=== PATIENT | male | born 1975 | race Caucasian/White ===

== ENCOUNTER 2019-11-02 20:05 | Emergency (ER) | payer BC ==
[~2019-11-02] VITALS: Ht 149.9 cm; Wt 63.5 kg
[2019-11-02 20:09] VITALS: BP_SYST 129
[2019-11-02] MEDS ORDERED: DIPHENHYDRAMINE HCL 25 MG CAPSULE PO ONE (20:30)
[2019-11-02] MEDS ORDERED: DEXAMETHASONE SOD PHOSPHATE 10 MG/ML VIAL IM ONE (20:30)
[2019-11-02 21:05] VITALS: BP_SYST 121
== END 2019-11-02 21:05 | disposition home or self-care (01) ==
LOC: SED 20:05
DX: T78.40XA Allergy, unspecified, initial encounter (principal); I10 Essential (primary) hypertension; F12.90 Cannabis use, unspecified, uncomplicated; X58.XXXA Exposure to other specified factors, initial encounter
CPT/HCPCS: 70450; 96372; 99284; J1100; Q0163

== ENCOUNTER 2019-11-10 15:47 | Inpatient (IN) | payer BC, MEDICAID ==
[~2019-11-10] VITALS: Ht 149.9 cm; Wt 63.5 kg
[2019-11-10 15:50] VITALS: BP_SYST 153
--- NOTE | 2019-11-10 15:56 | NUR ---
Patient to ER bed 3 to gown for evaluation. Side rails up. Report given to DEJUAN Pavon.
--- NOTE | 2019-11-10 15:58 | NUR ---
Patient arrived in the ED c/o generalized weakness, chills, shaky, anxiety that started today - patient stated he's undergoing alcohol withdrawal. Denied any chest pain or shortness of breath. Denied any fevers or vomiting. Patient is alert and oriented x4, respirations even and unlabored, speaking in full sentences, and ambulating with a steady gait. VSS, pain level 0/10. Informed of the approximate wait time. Instructed to notify ED staff for any changes in condition or worsening of symptoms while waiting to be seen by an ED provider. Patient verbalized understanding.
[2019-11-10] MEDS ORDERED: NACL 0.9% 2,000 ML IV ONE (16:00)
[2019-11-10] MEDS ORDERED: FOLIC ACID 1 MG, THIAMINE HCL 100 MG, MAGNESIUM SULFATE 1 GM, MVI 10 ML in NACL 0.9% 1,... IV ONE (16:00)
[2019-11-10] MEDS ORDERED: LORazepam 2 MG/ML VIAL IVP ONE ×2 (16:00→17:45)
--- NOTE | 2019-11-10 16:04 | NUR ---
ER Dr. Negro at bedside examining patient.
[2019-11-10] MEDS ORDERED: KCL 20 mEq in 100 mL (PREMIX) 100 ML IV ONE (16:15)
[2019-11-10] MEDS ORDERED: ONDANSETRON HCL 4 MG/2 ML VIAL IVP ONE (16:15)
--- NOTE | 2019-11-10 16:15 | NUR ---
# 18 gauge angiocath placed to RAC, LAC. Use of asceptic technique. Opsite placed over site. Blood return noted. Blood for lab drawn from site. Flushed with 10 cc of normal saline. No evidence of infiltration noted. Patient tolerated well.
[2019-11-10 16:21] LABS: BASOPHILS # (AUTO) 0.1 K/uL (0.0-0.2); BASOPHILS % (AUTO) 0.9 % (0.0-2.0); EOSINOPHILS # (AUTO) 0.2 K/uL (0.0-0.4); EOSINOPHILS % (AUTO) 1.4 % (0.0-4.0); HEMATOCRIT 45.5 % (36-54); HEMOGLOBIN 15.4 g/dL (14.0-18.0); LYMPHOCYTES # (AUTO) 2.9 K/uL (1.0-5.5); LYMPHOCYTES % (AUTO) 20.3 % (20.5-51.5); MEAN CORPUSCULAR HEMOGLOBIN 31 pg (27-31); MEAN CORPUSCULAR HGB CONC 34 % (32-36); MEAN CORPUSCULAR VOLUME 91 fL (79.0-98.0); MONOCYTES # (AUTO) 1.7 K/uL (0.0-1.0); MONOCYTES % (AUTO) 11.9 % (1.7-9.3); NEUTROPHILS # (AUTO) 9.3 K/uL (1.8-7.7); NEUTROPHILS % (AUTO) 65.5 % (40.0-70.0); PLATELET COUNT (AUTO) 248 K/uL (130-430); RED BLOOD CELL COUNT(AUTO) 4.98 MIL/uL (4.2-6.2); RED CELL DISTRIBUTION WIDTH 15.8 % (9.0-15.0); WHITE BLOOD COUNT (AUTO) 14.3 K/uL (4.8-10.8)
--- NOTE | 2019-11-10 16:30 | NUR ---
Administered Ativan and Zofran IVP as ordered by Dr. Negro. Patient tolerated the medications well. See eMAR for details.
[2019-11-10] MEDS ORDERED: THIAMINE HCL 100 MG/ML VIAL ONE (16:39)
[2019-11-10] MEDS ORDERED: MAGNESIUM SULFATE 1 GM/2 ML VIAL ONE (16:39)
[2019-11-10] MEDS ORDERED: MVI 10 ML VIAL IV ONE (16:39)
[2019-11-10] MEDS ORDERED: FOLIC ACID 5 MG/ML VIAL IV ONE (16:39)
[2019-11-10 16:49] LABS: ANION GAP 10 (5-15); CALCIUM 10.5 mg/dL (8.4-11.0); CHLORIDE 98 mmol/L (98-107); GLUCOSE 127 mg/dL (70-99); POTASSIUM 3.2 mmol/L (3.5-5.1); SODIUM SERUM 139 mmol/L (136-145); UREA NITROGEN, BLOOD 20 mg/dL (8-21)
[2019-11-10 16:50] LABS: GFR AFRICAN AMERICAN 93 mL/min (>90)
[2019-11-10 16:55] LABS: ALANINE AMINOTRANSFERASE 64 U/L (12-78); ALBUMIN 3.9 g/dL (3.4-4.8); ASPARTATE AMINOTRANSFERASE 100 U/L (10-37)
[2019-11-10 16:58] LABS: ALCOHOL, BLOOD < 3 mg/dL (<10)
[2019-11-10] MEDS ORDERED: DIPHENHYDRAMINE INJ 50 MG/ML VIAL IVP ONE (17:45)
[2019-11-10] MEDS ORDERED: METOPROLOL TARTRATE 5 MG/5 ML VIAL IVP ONE (17:45)
--- NOTE | 2019-11-10 17:48 | NUR ---
Administered Ativan, Benadryl, and Lopressor as ordered by Dr. Negro. Patient tolerated the medications well. See eMAR for details.
--- NOTE | 2019-11-10 17:52 | NUR ---
RECEIVED ADMITTING ORDERS FROM DR. CANALES.
[2019-11-10 17:54] LABS: BILIRUBIN,URINE 1+ (NEGATIVE); COLOR,URINE YELLOW (YELLOW); GLUCOSE,URINE NEGATIVE (NEGATIVE); KETONES,URINE NEGATIVE (NEGATIVE); LEUKOCYTE ESTERASE ,URINE NEGATIVE (NEGATIVE); NITRITE, URINE NEGATIVE (NEGATIVE); PH,URINE 5.5 (5.0-8.0); PROTEIN URINE NEGATIVE (NEGATIVE); UROBILINOGEN,URINE 0.2 (0.2-1.0)
[2019-11-10] MEDS ORDERED: LORazepam 2 MG/ML VIAL IVP PRN (18:00)
[2019-11-10 18:06] LABS: BENZODIAZEPINE, URINE POSITIVE (NEG <=150); UR TRICYCLIC ANTIDEPRESSANTS POSITIVE (NEG <=300); URINE AMPHETAMINE POSITIVE (NEG <=500)
[2019-11-10 18:08] LABS: CANNABINOID, URINE POSITIVE (NEG <=50)
[2019-11-10 18:09] LABS: BARBITURATE, URINE NEGATIVE (NEG <=200); COCAINE, URINE NEGATIVE (NEG <=150); METHAMPHETAMINES SCREEN,URINE NEGATIVE (NEG <=500); OPIATE, URINE NEGATIVE (NEG <=100); PHENCYCLIDINE SCREEN,URINE NEGATIVE (NEG <=25); URINE METHADONE NEGATIVE (NEG <=200); URINE OXYCODONE SCREEN NEGATIVE (NEG <=100); URINE PROPOXYPHENE SCREEN NEGATIVE (NEG <=300)
--- NOTE | 2019-11-10 18:28 | NUR ---
Patient will be admitted to care of DR. CANALES. Admitted to TELE unit. Will go to room 103B. Belongings list completed. Complete and up to date summary report printed. SBAR report to be given at bedside with opportunity for questions.
[2019-11-10 18:39] LABS: BLOOD, URINE TRACE (NEGATIVE)
[2019-11-10 18:40] LABS: CLARITY/URINE HAZY (CLEAR)
[2019-11-10 18:43] VITALS: BP_SYST 124
--- NOTE | 2019-11-10 18:50 | NUR ---
[facility] Patient admitted from ER [facility] bed 103B. Patient A/Ox3 but forgetful. Patient pulled out 18 g in LAC. Bed alarm on, call light in reach, side rails up x2, bed in low and locked position. will endorse care to NOC RN.
[2019-11-10] MEDS ORDERED: predniSONE 20 MG TABLET ONE (18:51)
[2019-11-10] MEDS ORDERED: DOCUSATE SODIUM 100 MG CAPSULE PO PRN (19:15)
[2019-11-10] MEDS ORDERED: MUPIROCIN 2% TOPICAL OINTMENT 22 GM NS PRN (19:15)
[2019-11-10] MEDS ORDERED: ACETAMINOPHEN 325 MG TABLET PO PRN (19:15)
[2019-11-10] MEDS ORDERED: POTASSIUM CHLORIDE 20 MEQ TAB.PRT.SR PO PRN (19:15)
[2019-11-10] MEDS ORDERED: MAGNESIUM SULFATE 50 ML IV PRN (19:15)
[2019-11-10 19:27] LABS: RBC,URINE 0-3 /HPF (0-3)
[2019-11-10 19:28] LABS: BACTERIA,URINE FEW /HPF (None Seen); FINE GRANULAR CASTS,URINE 0-10 /LPF (None Seen); OTHER CASTS, URINE WBC CASTS 1+ /LPF (None Seen); URINE AMORPHOUS URATE 1+ /HPF (None Seen)
[2019-11-10 19:29] LABS: CALCIUM OXALATE CRYSTALS,UR 0-10 /HPF (None Seen); MUCUS,URINE 2+ /LPF (None Seen)
[2019-11-10] MEDS ORDERED: FLU VACC QS2020-21 (6 mos & up) 0.5 ML/SYRINGE I.M. PRN (19:30)
--- NOTE | 2019-11-10 19:30 | NUR ---
CHANGE OF SHIFT; pt. was just admitted from ER for ETOH withdrawal. pt. very anxious when received. fidgety and out of bed. pt. wants Ativan,just given @ 1800, informed pt. that I will check for the order. IV infusing via rt. antecubital. call light at bedside. informed to stay in bed.
--- NOTE | 2019-11-10 19:45 | NUR ---
NOTES: pt. out of bed, getting restless, removed catalyst operator gasoline, cables off. IV tubing pulling out since been going around, touching every little thing. pt. reoriented, for close observation. not using call light.
--- NOTE | 2019-11-10 20:15 | NUR ---
NOTES: remain restless, frequent reminder to stay in bed, jello given and water. gave urinal and put trash inside, informed to use urinal to void.
[2019-11-10] MEDS: LORazepam 2 MG/ML VIAL IVP PRN (20:39)
--- NOTE | 2019-11-10 20:40 | NUR ---
NOTES: pt. remain agitated.restless and getting confused, IV Ativan given as ordered. hot roll laminator off. IV pump line broken, keeps getting out of bed and wont keep still in bed. charge nurse Sussy also talking to him to stay in bed. spills water, removed pt. gown, verbalizing he wants to go home. condition guarded.
[2019-11-10] MEDS: NACL 0.9% 1,000 ML IV SCH (21:58)
[2019-11-10] MEDS: chlordiazePOXIDE HCL 25 MG CAPSULE PO SCH (21:58)
--- NOTE | 2019-11-10 22:00 | NUR ---
NOTES: new IV tubing and pump to resume IVF. Librium po given as ordered. needs attended.
--- NOTE | 2019-11-10 23:00 | NUR ---
NOTES: pt. still awake, condition observed. IV site rewrapped and secured to keep it in.
--- NOTE | 2019-11-10 23:17 | NUR ---
NOTES: Dr. Bass called and informed him pt. status about agitation, restlessness and removing everything. no further order, off monitor for now.
--- NOTE | 2019-11-10 23:26 | NUR ---
NOTES: pt. been getting out of his room, charge nurse Sussy and roller printing supervisor Tee here. and tried to talk with him. pt. able to disconnect IVF.
[2019-11-10] MEDS: ZOLPIDEM TARTRATE 5 MG TABLET PO PRN (23:49)
--- NOTE | 2019-11-10 23:55 | NUR ---
NOTES: still awake, still attempts to get out of the room, sleeping medication given as ordered. continue to monitor.
[2019-11-11] VITALS: BP_SYST 141
[2019-11-11] MEDS: NACL 0.9% 1,000 ML IV SCH ×4 (00:40→15:23)
[2019-11-11] MEDS: LORazepam 2 MG/ML VIAL IVP PRN ×2 (00:42→05:26)
--- NOTE | 2019-11-11 00:45 | NUR ---
NOTES: pt. medicated with IV Ativan, still awake and agitated, pretty restless, been getting out of the room every so often. pt. getting angry when you tell him repeatedly.
--- NOTE | 2019-11-11 01:45 | NUR ---
NOTES: remain awake, constantly being watched and talked to by other nurses and occasionally calling security. pt. still confused and disoriented.
--- NOTE | 2019-11-11 03:22 | NUR ---
NOTES: still awake and restless, confused and got the room messed up, been going thru all the drawers, IV pump and head lights. no effect on IV Ativan given. pt. is harmful to himself and others. bilateral soft wrist restraints applied. Addendum: 11/11/19 at 0426 by Shari Murdock RN Late entry;[id number] nursing management supervisor, information systems security analyst and staff helped to put restraints.
--- NOTE | 2019-11-11 04:02 | NUR ---
NOTES: pt. manage to remove restraints twice. pt. up in bed and standing outside his room.
--- NOTE | 2019-11-11 04:10 | NUR ---
NOTES: pt. able to persuade to go back to bed , unable to put restraints back since pt. can remove it. off IVF and rn cardiac cath.
--- NOTE | 2019-11-11 05:28 | NUR ---
NOTES: pt. getting worst , being destructive, O2 flow meter took off the wall suctio, foot board removing from the bed, placed back soft bilateral soft wrist restraints. IVF resume. medicated with IV Ativan as ordered. condition guarded. nursing supervisor pyrotechnic loading, security and tech Javad helped in placing restraints. pt. repositioned.
--- NOTE | 2019-11-11 05:46 | NUR ---
NOTES: again, pt. manage to remove restraints, called family member and left message to call back to inform about restraints. will call .
--- NOTE | 2019-11-11 06:15 | NUR ---
NOTES: pt. able to remove again the restraints, Javad moran been directly observing pt. charge nurse Sussy kennedy.
[2019-11-11 06:23] LABS: BASOPHILS # (AUTO) 0.1 K/uL (0.0-0.2); BASOPHILS % (AUTO) 0.6 % (0.0-2.0); EOSINOPHILS % (AUTO) 0.1 % (0.0-4.0); HEMATOCRIT 37.5 % (36-54); HEMOGLOBIN 12.5 g/dL (14.0-18.0); LYMPHOCYTES # (AUTO) 1.6 K/uL (1.0-5.5); LYMPHOCYTES % (AUTO) 14.5 % (20.5-51.5); MEAN CORPUSCULAR HEMOGLOBIN 31 pg (27-31); MEAN CORPUSCULAR HGB CONC 33 % (32-36); MEAN CORPUSCULAR VOLUME 92 fL (79.0-98.0); MONOCYTES # (AUTO) 1.1 K/uL (0.0-1.0); NEUTROPHILS # (AUTO) 8.3 K/uL (1.8-7.7); NEUTROPHILS % (AUTO) 74.8 % (40.0-70.0); PLATELET COUNT (AUTO) 191 K/uL (130-430); RED BLOOD CELL COUNT(AUTO) 4.05 MIL/uL (4.2-6.2); RED CELL DISTRIBUTION WIDTH 17.5 % (9.0-15.0); WHITE BLOOD COUNT (AUTO) 11.1 K/uL (4.8-10.8)
--- NOTE | 2019-11-11 06:45 | NUR ---
CLOSING NOTES; called Dr. Bass and return the call and informed him about pt. being destructive and harmful to self and other. ok to put on bilateral soft wrist restraints and sitter. charge nurse informed. pt. still awake, wandering around the room. sitter at bedside. for further care and observation.
[2019-11-11 07:04] LABS: CALCIUM 8.3 mg/dL (8.4-11.0); CREATININE 1.47 mg/dL (0.55-1.30); POTASSIUM 3.9 mmol/L (3.5-5.1)
--- NOTE | 2019-11-11 07:20 | NUR ---
OPENING NOTES: RECEIVED PATIENT FROM MANAGED CARE NURSE NURSE. PATIENT IS AWAKE AND ALERT x1. PATIENT IS WALKING AROUND THE ROOM. SITTER OUTSIDE THE DOOR. PATIENT IS TOLERATING OXYGEN ON ROOM AIR WITH NO SIGNS OF DISTRESS OR SHORTNESS OF BREATH NOTED. IV SITE IS INFILTRATED. IV CATHETER REMOVED AND INTACT. NO ACTIVE BLEEDING NOTED. WILL ATTEMPT TO INSERT NEW IV. PATIENT PUT BACK ON THE TELEMETRY BOX. PATIENT STATES HE WILL KEEP IT ON THIS TIME. PATIENT IN STABLE CONDITION. SAFETY, FALL, ASPIRATION AND SEIZURE PRECAUTIONS ARE IN PLACE. BED LOCKED IN LOWEST POSITION WITH CALL LIGHT IN REACH. WILL CONTINUE TO MONITOR PATIENT FOR ANY CHANGES.
[2019-11-11] MEDS ORDERED: FOLIC ACID 1 MG, THIAMINE HCL 100 MG, MAGNESIUM SULFATE 1 GM, MVI 10 ML in NACL 0.9% 1,... IV ONE (07:45)
--- NOTE | 2019-11-11 07:57 | NUR ---
CONSULTATION PAGED/CALLED Reason for Consultation: [] MANIC, ALCOHOLISM Person Who was Notified: [] DR MEAD Consulting Physician: [] DR MEAD, SHEEP AND WHEAT FARMER FOR DR CHAHAL Battery Parts Assembler Specialty: [] PSYCH Ordering Physician: [] DR CANALES
[2019-11-11 08:00] VITALS: BP_SYST 136
[2019-11-11] MEDS ORDERED: THIAMINE HCL 100 MG, MAGNESIUM SULFATE 1 GM in NS 100 ML IV ONE (08:30)
[2019-11-11] MEDS ORDERED: FOLIC ACID 1 MG, MVI 10 ML in NACL 0.9% 1,000 ML IV ONE (08:30)
[2019-11-11] MEDS: OLANZapine 5 MG TABLET PO SCH ×2 (08:59→21:26)
[2019-11-11] MEDS: chlordiazePOXIDE HCL 25 MG CAPSULE PO SCH ×3 (08:59→21:26)
[2019-11-11] MEDS: FOLIC ACID 1 MG TABLET PO SCH (09:00)
[2019-11-11] MEDS: cefTRIAXone 1 GM in D5W 50 ML IV SCH (09:03)
--- NOTE | 2019-11-11 09:10 | NUR ---
IV INSERTION: NEW IV INSERTED INTO RIGHT WRIST 22 G. ASEPTIC TECHNIQUE USED. BLOOD RETURN AND FLUSHED WITHOUT RESISTANCE. IV FLUIDS AND BANANA BAG HOOKED UP TO PATIENT. WRAPPED IV WITH KERLIX. EDUCATED PATIENT ON THE IMPORTANCE OF KEEPING THE IV IN AND NOT PLAYING WITH THE IV POLE. WILL CONTINUE TO MONITOR PATIENT.
--- NOTE | 2019-11-11 10:00 | NUR ---
RN ROUNDS: PATIENT IS AWAKE AND ALERT x1 LAYING DOWN IN BED. SECURITY BROUGHT A SHIRT FOR THE PATIENT. ASSISTED PATIENT WITH PUTTING ON THE SHIRT. IV LINES RECONNECTED. SITTER AT BEDSIDE. PATIENT IN STABLE CONDITION. WILL CONTINUE TO MONITOR PATIENT FOR ANY CHANGES.
--- NOTE | 2019-11-11 12:27 | NUR ---
RN ROUNDS: PATIENT IS AWAKE AND ALERT x1 LAYING DOWN IN BED. PATIENT IS TOLERATING OXYGEN ON ROOM AIR WITH NO SIGNS OF DISTRESS OR SHORTNESS OF BREATH NOTED. IV SITE IS PATENT WITH NO SIGNS OF INFILTRATION NOTED AND RUNNING FLUIDS ORDERED. SITTER AT BEDSIDE. PATIENT IN STABLE CONDITION. WILL CONTINUE TO MONITOR PATIENT FOR ANY CHANGES.
--- NOTE | 2019-11-11 13:24 | NUR ---
SS NOTES/DCP/ETOH: LOAN REVIEW ANALYST was referred by SS to see patient for ETOH and DCP. LOAN REVIEW ANALYST phoned PTN, Diana Alvarez @ [phone]. Per mom, pt lives with room mates in [place]. Pt is independent with all ADL's and does not utilize any DME. Pt was working and was laid off due to Covid. Pt has a long history of depression and anxiety and has a diagnoses of manic disorder but no history of inpatient psychiatric admissions. Pt is connected with outpatient mental health but unknown clinic at this time. Pt also has polysubstance abuse disorder and has been on multiple substances since his teenage years. Per mom, pt drinks heavily and abuses prescription drugs. especially after his brother's suicide 6 years ago. Pt has a history of voluntary rehab admissions in [place] and recently in [facility] 1-2 months ago. Pt's only source of income is his unemployment and his support systems are his roommates and family. LOAN REVIEW ANALYST provided patient with outpatient mental health and substance abuse resources.
--- NOTE | 2019-11-11 14:40 | NUR ---
RN ROUNDS: PATIENT IS ASLEEP LAYING DOWN IN BED. SITTER AT BEDSIDE. PATIENT IS TOLERATING OXYGEN ON ROOM AIR WITH NO SIGNS OF DISTRESS OR SHORTNESS OF BREATH NOTED. IV SITE IS PATENT WITH NO SIGNS OF INFILTRATION NOTED. PATIENT IN STABLE CONDITION. WILL CONTINUE TO MONITOR PATIENT FOR ANY CHANGES.
--- NOTE | 2019-11-11 16:10 | NUR ---
RN ROUNDS: PATIENT IS ASLEEP LAYING DOWN IN BED. PATIENT IS TOLERATING OXYGEN ON ROOM AIR WITH NO SIGNS OF DISTRESS OR SHORTNESS OF BREATH NOTED. IV SITE IS PATENT WITH NO SIGNS OF INFILTRATION NOTED. SITTER AT BEDSIDE. PATIENT IN STABLE CONDITION. WILL CONTINUE TO MONITOR PATIENT FOR ANY CHANGES.
--- NOTE | 2019-11-11 18:45 | NUR ---
CLOSING NOTES: PATIENT IS ASLEEP LAYING DOWN IN BED. SITTER AT BEDSIDE. PATIENT IS TOLERATING OXYGEN ON ROOM AIR WITH NO SIGNS OF DISTRESS OR SHORTNESS OF BREATH NOTED. IV SITE IS PATENT WITH NO SIGNS OF INFILTRATION AND RUNNING FLUIDS ORDERED. PATIENT REFUSES TO KEEP TELEMETRY BOX ON. PATIENT IN STABLE CONDITION. SAFETY, FALL, ASPIRATION AND SEIZURE PRECAUTIONS REMAINED IN PLACE THROUGHOUT THE SHIFT. PATIENT REFUSED TO HAVE SEIZURE PADS APPLIED TO THE BED. BED LOCKED IN LOWEST POSITION WITH CALL LIGHT IN REACH. WILL ENDORSE PATIENT CARE TO ONCOMING SPECIALTY TRIMMER.
[2019-11-11 19:00] VITALS: BP_SYST 135
--- NOTE | 2019-11-11 19:15 | NUR ---
change of shift.pt.presents admit dx;etoh withdrawls possible note seizure 2/t etoh withdrawls.pt.presents quiescent affect;calm, somnolent.pt.presents iv access intact;patent iv fluids infusing.iv fluidis to alternate;ns and banana-bag.ns iv fluids infusing@this hour@the rate: 150ml/hr.per flacc pt.absent facial grimaces/body posturing.general status stable.respiratory status stable;unlabored@room air. call light/telephone w/in reach of the pt.
[2019-11-11 20:00] VITALS: BP_SYST 135
--- NOTE | 2019-11-11 20:00 | NUR ---
pt.assessed.i have introduced myself.v/s assessed values w/in normal limits.no c/o pain,nausea.i have apprised the pt.that snacks beverages are available w/in the shift.no requests posited@this hour.i have re-oriented the pt:place,time,iv access intact;patent iv fluids infusing.precautions noted;fall,seizure,aspiration, pt.capable to reposition self/ambulate w assistance.general status stable.respiratory status stable;unlabored@room air:o2-sat%=98%.call light/telephone placed w/in access of the pt.
--- NOTE | 2019-11-11 20:30 | NUR ---
pt.required assistance to the restroom.i assisted the pt.to the restroom.i assisted pt 's return to bed;gait slight unsteady. i inquired if the pt.requested any items,snacks.pt.stated he was cold.i have provided a blanket;warmed,socks.no requests for snacks/beverages @this hour.call light/telephone placed w/in access of the pt.
--- NOTE | 2019-11-11 21:00 | NUR ---
2100pmedications:ayaka das due.pt.presents quiescent affcet;somnolent.will attempt to administer 2100pmediactions @a later hour.
--- NOTE | 2019-11-11 21:30 | NUR ---
pt.awoke.pt.requested snacks/juice.i have provided jello/oj.i apprised the pt.that 2100pmedications are due;pippa marley. i provided the pt.w medication;indication re;the respective medication.pt.accepted the administration;of the 2100pmedications librium/zyprexa.
--- NOTE | 2019-11-11 22:00 | NUR ---
pt.assessed.pt.presents quiescent affect;calm,somnolent.per flacc pain mgx pt.absent facial grimaces/body posturing. pt.requested the iv fluids off. i have acquiest to the pt's request.to re-administer iv fluids@a later hour.no c/o pain,nausea.no requests posited@this hour. pt.capable to reposition self/ambulate.call light/telephone placed w/in access of the pt.
--- NOTE | 2019-11-11 23:00 | NUR ---
pt.assessed.pt.presents quiescent affect;calm,somnolent.per flacc pain mgx pt.absent facial grimaces/body posturing. general status stable.respiratory status stable;unlabored.pt.capable to reposition self.call light/telephone w/in reach of the pt.
[2019-11-12] VITALS: BP_SYST 138
--- NOTE | 2019-11-12 | NUR ---
pt.assessed.v/s assessed.values w/in normal limits.no c/o pain,nausea.no requests posited@ this hour.general status stable. respiratory status stable;unlabored.pt.capable to reposition self.call light/telephone placed w/in access of the pt.
[2019-11-12] MEDS: ZOLPIDEM TARTRATE 5 MG TABLET PO PRN (01:59)
--- NOTE | 2019-11-12 02:00 | NUR ---
pt.assessed.pt.assisted to the restroom.pt.assisted return to bed.pt.requested juice;oj.i have provided the juice:oj. pt.had requested medication;sleep.i have administered ambien:10mg po.pt.capable to reposition self.pt.presents quiescent affect;calm.general status stable.respiratory status stable;unlabored.call light/telephone placed w/in reach of the pt.
--- NOTE | 2019-11-12 03:00 | NUR ---
pt.assessed.pt.presents quiescent affect;calm,somnolent.per flacc pain mgx pt.absent facial grimaces/body posturing. iv fluids infusing.pt.capable to reposition self.general status stable.respiratory status stable;unlabored.call light/telephone w/in reach of the pt.
[2019-11-12] MEDS: NACL 0.9% 1,000 ML IV SCH ×4 (03:32→20:08)
--- NOTE | 2019-11-12 04:00 | NUR ---
pt.assessed.pt.presents quiescent affect;calm,somnolent.per flacc pt.absent facial grimaces/body posturing.iv access intact; patent iv fluids infusing.general status stable.respiratory status stable;unlabored.pt.capable to reposition self.call light/telephone placed w/in access of the pt.
--- NOTE | 2019-11-12 05:00 | NUR ---
pt.assessed.pt.presents quiescent affect;calm,somnolent.per flacc pain mgx pt.absent facial grimaces/body posturing.iv access intact;patent iv fluids infusing.general status stable.respiratory status stable;unlabored.pt.capable to reposition self.call light/telephone placed w/in access of the pt.
[2019-11-12 06:23] LABS: BASOPHILS % (AUTO) 0.5 % (0.0-2.0); EOSINOPHILS # (AUTO) 0.2 K/uL (0.0-0.4); EOSINOPHILS % (AUTO) 2.3 % (0.0-4.0); HEMATOCRIT 37.9 % (36-54); HEMOGLOBIN 12.7 g/dL (14.0-18.0); LYMPHOCYTES # (AUTO) 2.1 K/uL (1.0-5.5); LYMPHOCYTES % (AUTO) 29.8 % (20.5-51.5); MEAN CORPUSCULAR HEMOGLOBIN 31 pg (27-31); MEAN CORPUSCULAR HGB CONC 33 % (32-36); MEAN CORPUSCULAR VOLUME 93 fL (79.0-98.0); MONOCYTES # (AUTO) 0.9 K/uL (0.0-1.0); MONOCYTES % (AUTO) 12.7 % (1.7-9.3); NEUTROPHILS # (AUTO) 3.8 K/uL (1.8-7.7); NEUTROPHILS % (AUTO) 54.7 % (40.0-70.0); PLATELET COUNT (AUTO) 178 K/uL (130-430); RED BLOOD CELL COUNT(AUTO) 4.07 MIL/uL (4.2-6.2); RED CELL DISTRIBUTION WIDTH 17.4 % (9.0-15.0); WHITE BLOOD COUNT (AUTO) 6.9 K/uL (4.8-10.8)
--- NOTE | 2019-11-12 06:35 | NUR ---
pt.assessed.pt.presents qujiescent afect;pt/awoke.pt.rewquiestred juice;oj./water.i have prbvide th bevrages.i have propvide th pt.w toilettries.iv cces inatctr;patent iv fluids infusing.no c/o,pian,an suea.genral stau stable.respioartpry stau stable;unlabored.pt.capble to resiton self.call lioght/telephonme palced w/in acceess of pt/
[2019-11-12 06:48] LABS: CALCIUM 7.9 mg/dL (8.4-11.0); CREATININE 1.06 mg/dL (0.55-1.30); POTASSIUM 3.8 mmol/L (3.5-5.1)
--- NOTE | 2019-11-12 07:15 | NUR ---
received pt in bed , pt is asleep, no s/s of pain, no sob. breathing even and unlabored. will cont to monitor. safety precaution inplace, sitter at bedside. bed alarm on. call light in reach, bed in low position. will cont to monitor.
[2019-11-12 07:30] VITALS: BP_SYST 131
[2019-11-12] MEDS: LORazepam 2 MG/ML VIAL IVP PRN ×4 (07:32→21:25)
--- NOTE | 2019-11-12 07:36 | NUR ---
pt c/o of anxiety, pt given ativan. vitals wnl. no fever. pt is more alert and conversant, oriented x3, name place and date. pt ambulated to the bathroom with steady gate with min assist. will cont to monitor.
--- NOTE | 2019-11-12 08:28 | NUR ---
Dr Bass here and seen pt together with medical students, said if cleared by dr corley, he will dc pt.
[2019-11-12] MEDS: OLANZapine 5 MG TABLET PO SCH ×3 (08:39→20:07)
[2019-11-12] MEDS: chlordiazePOXIDE HCL 25 MG CAPSULE PO SCH ×3 (08:39→20:08)
[2019-11-12] MEDS: FOLIC ACID 1 MG TABLET PO SCH (08:39)
[2019-11-12] MEDS: cefTRIAXone 1 GM in D5W 50 ML IV SCH (08:40)
--- NOTE | 2019-11-12 08:45 | NUR ---
adam meds offered and taken by
--- NOTE | 2019-11-12 09:04 | NUR ---
pt's mother called and updated with pt's status, she also spoke with the pt.
--- NOTE | 2019-11-12 09:10 | NUR ---
pt is awake, in bed, quiet at this time. c/o of anxiety. told pt that he was just given librium which and can help with his anxiety. told him to wait till the medication takes effect.
--- NOTE | 2019-11-12 10:21 | NUR ---
pt ambulated to bathroom to void, min assist.
[2019-11-12] MEDS: ONDANSETRON HCL 4 MG/2 ML VIAL IVP PRN (12:48)
--- NOTE | 2019-11-12 13:11 | NUR ---
[phone] SPOKE WITH SHARLA.
[2019-11-12] MEDS ORDERED: ALBUTEROL MDI INHALATION 8 GM INH INH PRN (13:45)
[2019-11-12 16:56] VITALS: BP_SYST 124
--- NOTE | 2019-11-12 18:38 | NUR ---
CLOSING NOTES, PT HAS BEEN STABLE, JESSI DC'D BY DR MEAD. PT HAS BEEN AMBULATING IN THE HALLWAY WITH STEADY GAIT, PT C/O OF ANXIETY AND GIVEN ATIVAN. ALL MEDS GIVEN. WILL ENDORSE TO NIGHT NURSE.
[2019-11-12 19:00] VITALS: BP_SYST 120
[2019-11-12 20:00] VITALS: BP_SYST 114
[2019-11-12] MEDS: traZODone HCL 50 MG TABLET (DESYREL) PO SCH (20:08)
--- NOTE | 2019-11-12 21:00 | NUR ---
Transfer of care Endorsed to Adela ZAIDI for continuation of care. Pt stable condition.
--- NOTE | 2019-11-12 21:15 | NUR ---
OPENING NOTES RECEIVED SBAR REPORT FROM HERBERT ZAIDI. PT RESTING IN BED, ALERT & ORIENTED X4. BREATHING EVEN AND UNLABORED TO ROOM AIR. NO S/S OF DISTRESS NOTED. PT DENIES ANY PAIN AT THIS TIME. CALL LIGHT WITHIN REACH. SIDE RAILS UP X3. BED LOCKED IN LOWEST POSITION. SAFETY AND FALL PRECAUTIONS ARE IN PLACE. WILL CONTINUE TO MONITOR.
--- NOTE | 2019-11-12 21:25 | NUR ---
IV PLACEMENT: # 24 gauge angiocath placed to LEFT HAND. Use of asceptic technique. Opsite placed over site. Blood return noted. Flushed with 5 cc of normal saline. No evidence of infiltration noted. Patient tolerated WELL.
[2019-11-12] MEDS: ALBUTEROL SULFATE 0.083% 2.5 MG/3 ML VIAL.NEB INH PRN (22:27)
--- NOTE | 2019-11-12 23:55 | NUR ---
RN ROUNDS PT SLEEPING. CHEST RISE AND FALL SYMMETRICAL. BREATHING EVEN AND UNLABORED TO ROOM AIR. NO SIGNS OF AGITATION NOTED. IVF RUNNING ORDERED RATE. NO SIGNS OF INFILTRATION NOTED. PT TOLERATING WELL. BED LOCKED IN LOWEST POSITION. CLOSE TO NURSING STATION. CALL LIGHT WITHIN REACH. SAFETY PRECAUTIONS ARE IN PLACE. WILL CONTINUE TO MONITOR.
[2019-11-13 00:11] VITALS: BP_SYST 109
--- NOTE | 2019-11-13 01:20 | NUR ---
IV ON LEFT HAND 24G CAME OFF, WILL TRY ANOTHER IV AGAIN.
--- NOTE | 2019-11-13 06:00 | NUR ---
IV PLACEMENT: # 22 gauge angiocath placed to LEFT HAND. Use of asceptic technique. Opsite placed over site. Blood return noted. Flushed with 5 cc of normal saline. No evidence of infiltration noted. Patient tolerated WELL.
[2019-11-13 06:26] LABS: BASOPHILS # (AUTO) 0.1 K/uL (0.0-0.2); BASOPHILS % (AUTO) 0.8 % (0.0-2.0); EOSINOPHILS # (AUTO) 0.2 K/uL (0.0-0.4); EOSINOPHILS % (AUTO) 2.9 % (0.0-4.0); HEMATOCRIT 36.4 % (36-54); HEMOGLOBIN 12.1 g/dL (14.0-18.0); LYMPHOCYTES # (AUTO) 1.9 K/uL (1.0-5.5); LYMPHOCYTES % (AUTO) 28.6 % (20.5-51.5); MEAN CORPUSCULAR HEMOGLOBIN 31 pg (27-31); MEAN CORPUSCULAR HGB CONC 33 % (32-36); MEAN CORPUSCULAR VOLUME 94 fL (79.0-98.0); MONOCYTES # (AUTO) 0.9 K/uL (0.0-1.0); MONOCYTES % (AUTO) 13.3 % (1.7-9.3); NEUTROPHILS # (AUTO) 3.5 K/uL (1.8-7.7); NEUTROPHILS % (AUTO) 54.4 % (40.0-70.0); PLATELET COUNT (AUTO) 189 K/uL (130-430); RED BLOOD CELL COUNT(AUTO) 3.89 MIL/uL (4.2-6.2); RED CELL DISTRIBUTION WIDTH 17.1 % (9.0-15.0); WHITE BLOOD COUNT (AUTO) 6.5 K/uL (4.8-10.8)
--- NOTE | 2019-11-13 06:46 | NUR ---
CLOSING NOTES PT SLEEPING. BREATHING EVEN AND UNLABORED TO ROOM AIR. NO S/S OF DISTRESS NOTED. CALL LIGHT WITHIN REACH. SIDE RAILS UP X3. BED LOCKED IN LOWEST POSITION. SAFETY AND FALL PRECAUTIONS ARE IN PLACE. ALL NEEDS ARE MET THROUGHOUT SHIFT. WILL CONTINUE TO MONITOR UNTIL ENDORSE TO DAY SHIFT RN.
[2019-11-13 06:55] LABS: CALCIUM 8.1 mg/dL (8.4-11.0); CREATININE 0.9 mg/dL (0.55-1.30); POTASSIUM 3.6 mmol/L (3.5-5.1)
[2019-11-13] MEDS: OLANZapine 5 MG TABLET PO SCH ×4 (07:05→20:02)
[2019-11-13] MEDS: NACL 0.9% 1,000 ML IV SCH ×3 (07:05→18:03)
[2019-11-13] MEDS: LORazepam 2 MG/ML VIAL IVP PRN ×3 (07:06→16:55)
--- NOTE | 2019-11-13 08:00 | NUR ---
OPENING NOTES, PT IN BED, STILL SLEEPY, NO C/O PAIN, NO SOB. IV FLUIDS INFUSING WELL. NO INFILTRATION IN THE IV SIDE. SAFETY PRECAUTION IN PLACE. CALL LIGHT IN REACH. ENCOURAGED PT TO CALL FOR ASSIST AND PAIN MEDS OR ANY CONCERNS.
[2019-11-13 08:03] VITALS: BP_SYST 137
[2019-11-13] MEDS: FOLIC ACID 1 MG TABLET PO SCH (08:29)
[2019-11-13] MEDS: chlordiazePOXIDE HCL 25 MG CAPSULE PO SCH ×3 (08:29→20:02)
[2019-11-13] MEDS: cefTRIAXone 1 GM in D5W 50 ML IV SCH (08:29)
--- NOTE | 2019-11-13 10:00 | NUR ---
PT IN BED, SLEEPING, NO S/S OF PAIN, NO SOB. WILL CONT TO MONITOR.
[2019-11-13 12:16] VITALS: BP_SYST 118
--- NOTE | 2019-11-13 12:57 | NUR ---
PT GIVEN ATIVAN FOR C/O OF ANXIETY.
--- NOTE | 2019-11-13 14:44 | NUR ---
PT WALKING IN THE HALLWAY.
[2019-11-13 16:13] VITALS: BP_SYST 147
--- NOTE | 2019-11-13 19:05 | NUR ---
CLOSING NOTES, PT HAS BEEN STABLE THE WHOLE SHIFT, PT WAS SLEEPY FROM 7 AM TO 12NN, PT STATED HE WAS SLEEPY DUE TO HE WAS UNABLE TO SLEEP WELL LAST NIGHT. AFTER LUNCH PT HAS BEEN WALKING IN THE HALLWAYS HALF OF THE SHIFT. PT GIVEN ALL MEDS AND PRN ATIVAN. PT GIVEN TYLENOL FOR BEFORE THE END OF SHIFT TO ARM PAIN FROM IV STARTS. WILL ENDORSE TO NIGHT NURSE.
--- NOTE | 2019-11-13 19:30 | NUR ---
OPENING NOTES RECEIVED SBAR REPORT FROM DAY SHIFT RN. PT RESTING IN BED, ALERT & ORIENTED X4. BREATHING EVEN AND UNLABORED TO ROOM AIR. IV ON LEFT HAND 22G, INTACT, NO SIGNS OF INFILTRATION NOTED. NO S/S OF ACUTE DISTRESS NOTED. BED LOCKED IN LOWEST POSITION. SIDE RAILS UP X3. CALL LIGHT WITHIN REACH. CLOSE TO NURSING STATION. SAFETY AND FALL PRECAUTIONS MAINTAINED. WILL CONTINUE TO MONITOR.
[2019-11-13] MEDS: ALBUTEROL SULFATE 0.083% 2.5 MG/3 ML VIAL.NEB INH PRN (19:33)
[2019-11-13 20:00] VITALS: BP_SYST 147
[2019-11-13] MEDS: traZODone HCL 50 MG TABLET (DESYREL) PO SCH (20:02)
--- NOTE | 2019-11-13 20:02 | NUR ---
MEDICATION PASS SCHEDULED MEDICATIONS ADMINISTERED ORDERED. DISCUSSED MEDICATIONS ACTION AND POTENTIAL SIDE EFFECTS. PT VERBALIZED UNDERSTANDING. VSS. O2 SAT 97% ON ROOM AIR. PT DENIES ANY PAIN AT THIS TIME. CALL LIGHT WITHIN REACH. BED LOCKED IN LOWEST LEVEL. CLOSE TO NURSING STATION. SAFETY AND FALL PRECAUTIONS ARE IN PLACE. WILL MONITOR.
[2019-11-13] MEDS: ZOLPIDEM TARTRATE 5 MG TABLET PO PRN (21:08)
--- NOTE | 2019-11-13 22:18 | NUR ---
RN ROUNDS PT SLEEPING. CHEST RISE AND FALL SYMMETRICAL. NO S/S OF SOB OR DISTRESS NOTED. IVF RUNNING ORDERED RATE. PT TOLERATING WELL. CALL LIGHT WITHIN REACH. CLOSE TO NURSING STATION. SAFETY AND FALL PRECAUTIONS ARE IN PLACE. WILL CONTINUE TO MONITOR.
[2019-11-14] VITALS: BP_SYST 138
[2019-11-14] MEDS: LORazepam 2 MG/ML VIAL IVP PRN ×5 (00:08→23:05)
--- NOTE | 2019-11-14 00:08 | NUR ---
ANXIETY/ATIVAN PT COMPLAINING OF ANXIETY. ADMINISTERED ATIVAN ORDERED PRN. DISCUSSED MEDIATION ACTIONS AND POTENTIAL SIDE EFFECTS. PT VERBALIZED UNDERSTANDING. BREATHING EVEN AND UNLABORED TO ROOM AIR. NO SIGNS OF RESPIRATORY DISTRESS NOTED. CALL LIGHT WITHIN REACH. BED LOCKED IN LOWEST POSITION. SAFETY AND FALL PRECAUTIONS ARE MAINTAINED. WILL CONTINUE TO MONITOR.
[2019-11-14] MEDS: NACL 0.9% 1,000 ML IV SCH ×4 (00:09→22:13)
--- NOTE | 2019-11-14 02:44 | NUR ---
RN ROUNDS PT SLEEPING. NO SIGNS OF AGITATION NOTED AT THIS TIME. BREATHING EVEN AND UNLABORED TO ROOM AIR. IV ON LEFT HAND 22G INTACT. IVF RUNNING ORDERED RATE. CALL LIGHT WITHIN REACH. BED LOCKED IN LOWEST POSITION. SAFETY AND FALL PRECAUTIONS ARE IN PLACE. WILL CONTINUE TO MONITOR.
[2019-11-14] MEDS: OLANZapine 5 MG TABLET PO SCH ×4 (06:03→19:50)
--- NOTE | 2019-11-14 06:37 | NUR ---
CLOSING NOTES PT SLEEPING. BREATHING EVEN AND UNLABORED TO ROOM AIR. IV ON LEFT HAND 22G, INTACT, NO SIGNS OF INFILTRATION NOTED. IVF RUNNING ORDERED RATE. NO S/S OF ACUTE DISTRESS NOTED. BED LOCKED IN LOWEST POSITION. SIDE RAILS UP X3. CALL LIGHT WITHIN REACH. CLOSE TO NURSING STATION. SAFETY AND FALL PRECAUTIONS MAINTAINED. ALL NEEDS ARE MET THROUGHOUT SHIFT. WILL CONTINUE TO MONITOR UNTIL ENDORSE TO DAY SHIFT RN.
[2019-11-14 06:43] LABS: BASOPHILS % (AUTO) 0.8 % (0.0-2.0); EOSINOPHILS # (AUTO) 0.2 K/uL (0.0-0.4); EOSINOPHILS % (AUTO) 2.7 % (0.0-4.0); HEMATOCRIT 35.3 % (36-54); HEMOGLOBIN 11.8 g/dL (14.0-18.0); LYMPHOCYTES # (AUTO) 1.6 K/uL (1.0-5.5); MEAN CORPUSCULAR HEMOGLOBIN 32 pg (27-31); MEAN CORPUSCULAR HGB CONC 33 % (32-36); MEAN CORPUSCULAR VOLUME 94 fL (79.0-98.0); MONOCYTES # (AUTO) 0.7 K/uL (0.0-1.0); MONOCYTES % (AUTO) 11.2 % (1.7-9.3); NEUTROPHILS # (AUTO) 3.4 K/uL (1.8-7.7); NEUTROPHILS % (AUTO) 58.3 % (40.0-70.0); PLATELET COUNT (AUTO) 216 K/uL (130-430); RED BLOOD CELL COUNT(AUTO) 3.74 MIL/uL (4.2-6.2); RED CELL DISTRIBUTION WIDTH 17.5 % (9.0-15.0); WHITE BLOOD COUNT (AUTO) 5.9 K/uL (4.8-10.8)
[2019-11-14 07:29] LABS: CALCIUM 8.3 mg/dL (8.4-11.0); CREATININE 0.8 mg/dL (0.55-1.30); POTASSIUM 3.5 mmol/L (3.5-5.1)
--- NOTE | 2019-11-14 07:30 | NUR ---
AM ROUNDS: PATIENT WALKING IN THE HALLWAY WITH HIS IV POLE. WITH STEADY GAIT. NOT IN ANY DISTRESS. THEN ESCORTED PATIENT BACK TO HIS ROOM. CONTINUE TO MONITOR. NO PROBLEM.
[2019-11-14 08:16] VITALS: BP_SYST 148
[2019-11-14] MEDS: FOLIC ACID 1 MG TABLET PO SCH (09:06)
[2019-11-14] MEDS: cefTRIAXone 1 GM in D5W 50 ML IV SCH (09:07)
[2019-11-14] MEDS: chlordiazePOXIDE HCL 25 MG CAPSULE PO SCH ×3 (09:25→19:50)
--- NOTE | 2019-11-14 10:30 | NUR ---
RN ROUNDS: PATIENT AMBULATING IN THE HALLWAY THEN BACK TO HIS ROOM. NO COMPLAINED MADE. STABLE.
[2019-11-14 12:17] VITALS: BP_SYST 135
--- NOTE | 2019-11-14 12:30 | NUR ---
Lunch: Patient sitting on the bed having lunch. Well tolerated.
--- NOTE | 2019-11-14 15:00 | NUR ---
Po Meds: Due po Librium given as ordered.No adverse reactions noted.
--- NOTE | 2019-11-14 15:25 | NUR ---
Psyche Paged: Called Dr Selby's exchange and left message c/o Jeanne.
--- NOTE | 2019-11-14 16:00 | NUR ---
Rn Notes: Explained to patient that Flexeril not listed as his own medications,needs to have an order from the Md. Will let psyche md know in am,patient okay with it.
[2019-11-14 16:41] VITALS: BP_SYST 145
--- NOTE | 2019-11-14 17:10 | NUR ---
Ambulates: Patient ambulating in the hallway. With no problem.
--- NOTE | 2019-11-14 18:26 | NUR ---
End of Shift: Patient had dinner. Eat very well. Iv fluids running at left hand intact. Call light with in reach. Bed locked at lowest position. Condition guarded.
--- NOTE | 2019-11-14 19:30 | NUR ---
OPENING NOTE RECEIVED SBAR REPORT FROM OFF COMING RN FOR CONTINUITY OF CARE.
[2019-11-14] MEDS: ONDANSETRON HCL 4 MG/2 ML VIAL IVP PRN (19:50)
[2019-11-14] MEDS: ZOLPIDEM TARTRATE 5 MG TABLET PO PRN (19:58)
[2019-11-14 20:00] VITALS: BP_SYST 155
--- NOTE | 2019-11-14 20:30 | NUR ---
PT AMBULATING IN ROOM AND HALLWAY. STEADY GAIT OBSERVED. PT STATING HE IS ANXIOUS. PT ON RA, OXYGEN SATURATION ABOVE 90%. NS @ 150 ML/HR INFUSING THROUGH PIV. WILL CONTINUE TO MONITOR AND ASSESS.
[2019-11-14] MEDS ORDERED: DIPHENHYDRAMINE INJ 50 MG/ML VIAL IVP ONE (21:00)
[2019-11-14] MEDS: traZODone HCL 50 MG TABLET (DESYREL) PO SCH (22:13)
[2019-11-15 00:30] VITALS: BP_SYST 138
--- NOTE | 2019-11-15 01:30 | NUR ---
PT AMBULATING IN ROOM AND HALLWAY. STEADY GAIT OBSERVED. PT STATING HE IS ANXIOUS AND CAN'T SLEEP. PT ON RA, OXYGEN SATURATION ABOVE 90%. NS @ 150 ML/HR INFUSING THROUGH PIV. PRN MEDICATIONS ADMINISTERED PER EMAR. WILL CONTINUE TO MONITOR AND ASSESS.
[2019-11-15] MEDS: LORazepam 2 MG/ML VIAL IVP PRN ×4 (02:02→17:58)
[2019-11-15] MEDS: NACL 0.9% 1,000 ML IV SCH ×4 (04:40→20:59)
[2019-11-15] MEDS: OLANZapine 5 MG TABLET PO SCH ×4 (06:17→21:50)
--- NOTE | 2019-11-15 06:30 | NUR ---
PT RESTING IN BED SLEEPING, NO S/S OF ACUTE DISTRESS NOTED. NS INFUSING @ 100 ML/HR. WILL CONTINUE TO MONITOR AND ASSESS.
--- NOTE | 2019-11-15 07:35 | NUR ---
CLOSING NOTE ENDORSED SBAR REPORT TO ONCOMING RN FOR CONTINUITY OF CARE.
[2019-11-15 07:48] LABS: BASOPHILS # (AUTO) 0.1 K/uL (0.0-0.2); BASOPHILS % (AUTO) 0.8 % (0.0-2.0); EOSINOPHILS # (AUTO) 0.2 K/uL (0.0-0.4); EOSINOPHILS % (AUTO) 2.9 % (0.0-4.0); HEMATOCRIT 36.4 % (36-54); HEMOGLOBIN 12.2 g/dL (14.0-18.0); LYMPHOCYTES # (AUTO) 1.7 K/uL (1.0-5.5); MEAN CORPUSCULAR HEMOGLOBIN 32 pg (27-31); MEAN CORPUSCULAR HGB CONC 34 % (32-36); MEAN CORPUSCULAR VOLUME 94 fL (79.0-98.0); MONOCYTES # (AUTO) 0.8 K/uL (0.0-1.0); MONOCYTES % (AUTO) 12.7 % (1.7-9.3); NEUTROPHILS # (AUTO) 3.8 K/uL (1.8-7.7); NEUTROPHILS % (AUTO) 57.6 % (40.0-70.0); PLATELET COUNT (AUTO) 255 K/uL (130-430); RED BLOOD CELL COUNT(AUTO) 3.86 MIL/uL (4.2-6.2); RED CELL DISTRIBUTION WIDTH 17.5 % (9.0-15.0); WHITE BLOOD COUNT (AUTO) 6.6 K/uL (4.8-10.8)
[2019-11-15 08:00] VITALS: BP_SYST 135
[2019-11-15 08:14] LABS: CALCIUM 9.1 mg/dL (8.4-11.0); CREATININE 0.81 mg/dL (0.55-1.30); POTASSIUM 3.5 mmol/L (3.5-5.1)
[2019-11-15] MEDS: FOLIC ACID 1 MG TABLET PO SCH (09:01)
[2019-11-15] MEDS: chlordiazePOXIDE HCL 25 MG CAPSULE PO SCH ×3 (09:01→21:51)
[2019-11-15] MEDS: cefTRIAXone 1 GM in D5W 50 ML IV SCH (09:04)
--- NOTE | 2019-11-15 09:53 | NUR ---
CONSULTATION PAGED REASON FOR CONSULTATION:GI WAS CONSULT CALLED?Y PERSON WHO WAS NOTIFIED:SHAN MICHELLE CONSULTING PHYSICIAN:SHAN MICHELLE GOLD BU[employer]ER SPECIALTY:GI G[employer] BU[employer]ER PHONE NUMBER:[phone] REQUESTING PHYSICIAN:;NANCY STEIN
--- NOTE | 2019-11-15 10:13 | NUR ---
ATIVAN IV PT AGITATED ASKING FOR ATIVAN.ATIVAN 2 MG IVP GIVEN ORDERED. PT STABLE NOT IN ACUTE DISTRESS
[2019-11-15] MEDS ORDERED: LORazepam 2 MG/ML VIAL IVP PRN (10:15)
[2019-11-15] MEDS ORDERED: PANTOPRAZOLE SODIUM 40 MG TAB PO ONE (10:15)
[2019-11-15] MEDS ORDERED: THIAMINE HCL 100 MG TABLET PO ONE (10:45)
[2019-11-15] MEDS ORDERED: MULTIVITAMINS TAB 1 TABLET PO ONE (10:45)
[2019-11-15 12:00] VITALS: BP_SYST 98
[2019-11-15] MEDS: GABAPENTIN 300 MG CAPSULE PO SCH ×2 (14:12→21:50)
[2019-11-15 16:00] VITALS: BP_SYST 104
--- NOTE | 2019-11-15 19:15 | NUR ---
Opening Note Received patient resting in bed on side posture, left side down, w/ eyes closed. No sign of distress and non labored breathing on room air. IVF infusing via IV to LFA. Bed is locked in lowest position and bed alarm is on.
[2019-11-15 20:00] VITALS: BP_SYST 111
--- NOTE | 2019-11-15 20:59 | NUR ---
IVF Hung new bag of NS and infusing as ordered at 150 ml/hr. Changed primary tubing. IV is patent, no sign of infiltration noted.
[2019-11-15] MEDS: traZODone HCL 50 MG TABLET (DESYREL) PO SCH (21:50)
--- NOTE | 2019-11-15 21:50 | NUR ---
Meds Patient is awake for medication. He is sitting up for meds. Reviewed side effects of Desyrel (dizziness, drowsiness, dry mouth), he verbalized understanding. Patient asked if it was time for Ativan, and informed it was given at 1800 and it is not time for another dose. He returned to lying down and closed his eyes. He has no further needs.
--- NOTE | 2019-11-15 22:30 | NUR ---
Resting Patient is resting, with eyes closed. IVF infusing well, no sign of infiltration. Non labored breathing. I continue to monitor patient at bedside; I (nurse) am in room with this patient and with another patient too.
[2019-11-16 00:35] VITALS: BP_SYST 131
[2019-11-16] MEDS: LORazepam 2 MG/ML VIAL IVP PRN (00:35)
--- NOTE | 2019-11-16 00:35 | NUR ---
Awake, V/S Patient is awake, V/S taken and stable. Patient is requesting Ativan, he states he gets restless and can't sleep. He was encouraged to use restroom before getting dose. He ambulated and is resting on chair, while bed is changed with new linen. He received Ativan and is also asking for Ambien. I informed this dose will cause him to be drowsy and he will sleep and further added that he was asleep after last dose at 1800. Will continue to monitor.
--- NOTE | 2019-11-16 01:42 | NUR ---
sleeping Patient is seeping, he is snoring. Nonlabored breathing noted. IVF infusing well, will continue to monitor.
--- NOTE | 2019-11-16 02:41 | NUR ---
sleeping Patient is seeping, he is snoring. Nonlabored breathing noted. IVF infusing well, will continue to monitor.
[2019-11-16] MEDS: NACL 0.9% 1,000 ML IV SCH (04:19)
--- NOTE | 2019-11-16 04:19 | NUR ---
IVF Patient resting w/eyes closed, easy to arouse, he was momentarily awakened. Hung new bag of NS and infusing as ordered at 150 ml/hr. IV is patent, no sign of infiltration noted. Will continue to monitor.
--- NOTE | 2019-11-16 04:46 | NUR ---
Lab draw arrt technologist at bedside for blood draw, patient tolerated and rested calmly w/eyes closed during procedure.
--- NOTE | 2019-11-16 06:10 | NUR ---
DO Direct observer is in room for patient in Bed C and will attend to this patient too. Presently patient returned to bed, he ambulated to restroom.
[2019-11-16 06:31] LABS: BASOPHILS # (AUTO) 0.1 K/uL (0.0-0.2); BASOPHILS % (AUTO) 0.9 % (0.0-2.0); EOSINOPHILS # (AUTO) 0.2 K/uL (0.0-0.4); EOSINOPHILS % (AUTO) 2.9 % (0.0-4.0); HEMATOCRIT 34.5 % (36-54); HEMOGLOBIN 11.5 g/dL (14.0-18.0); LYMPHOCYTES % (AUTO) 29.2 % (20.5-51.5); MEAN CORPUSCULAR HEMOGLOBIN 31 pg (27-31); MEAN CORPUSCULAR HGB CONC 33 % (32-36); MEAN CORPUSCULAR VOLUME 94 fL (79.0-98.0); MONOCYTES # (AUTO) 0.9 K/uL (0.0-1.0); MONOCYTES % (AUTO) 12.8 % (1.7-9.3); NEUTROPHILS # (AUTO) 3.7 K/uL (1.8-7.7); NEUTROPHILS % (AUTO) 54.2 % (40.0-70.0); PLATELET COUNT (AUTO) 283 K/uL (130-430); RED BLOOD CELL COUNT(AUTO) 3.67 MIL/uL (4.2-6.2); RED CELL DISTRIBUTION WIDTH 17.7 % (9.0-15.0); WHITE BLOOD COUNT (AUTO) 6.8 K/uL (4.8-10.8)
[2019-11-16 06:33] LABS: ALBUMIN 2.2 g/dL (3.4-4.8); CALCIUM 8.2 mg/dL (8.4-11.0); CREATININE 0.83 mg/dL (0.55-1.30); POTASSIUM 3.6 mmol/L (3.5-5.1); TOTAL BILIRUBIN 0.2 mg/dL (0.0-1.0)
--- NOTE | 2019-11-16 07:00 | NUR ---
closing note Patient resting in bed in comfortable position, w/ eyes closed. No sign of distress and non labored breathing on room air. IVF infusing via IV to LFA. Safety precautions in place, call light w/in reach. Needs met throughout shift, will endorse care to day shift nurse.
--- NOTE | 2019-11-16 07:30 | NUR ---
Opening Note Report received from NOC RN. Patient found sitting on the side of bed, eating breakfast, respirations even and unlabored. Patient responds to verbal stimuli, A/Ox4, denies complaints at this time. IVF running through left forearm. Bed in low and locked position, side rails up x2, call light within reach, bed alarm on, bathroom needs addressed.
[2019-11-16] MEDS ORDERED: FOLI-43 PO (07:52)
[2019-11-16] MEDS ORDERED: PRO40 PO (07:52)
[2019-11-16] MEDS ORDERED: NEU300 PO (07:52)
[2019-11-16] MEDS ORDERED: OLAN5TAB3 PO (07:57)
[2019-11-16 08:00] VITALS: BP_SYST 122
[2019-11-16 08:28] VITALS: BP_SYST 122
[2019-11-16 08:51] VITALS: BP_SYST 122
[2019-11-16] MEDS: FOLIC ACID 1 MG TABLET PO SCH (08:51)
[2019-11-16] MEDS: cefTRIAXone 1 GM in D5W 50 ML IV SCH (08:51)
[2019-11-16] MEDS: GABAPENTIN 300 MG CAPSULE PO SCH (08:51)
[2019-11-16] MEDS: OLANZapine 5 MG TABLET PO SCH (08:51)
[2019-11-16] MEDS ORDERED: MULTIVITAMINS TAB 1 TABLET PO SCH (09:00)
[2019-11-16] MEDS ORDERED: PANTOPRAZOLE SODIUM 40 MG TAB PO SCH (09:00)
[2019-11-16] MEDS: chlordiazePOXIDE HCL 25 MG CAPSULE PO SCH (09:00)
[2019-11-16] MEDS ORDERED: THIAMINE HCL 100 MG TABLET PO SCH (09:00)
--- NOTE | 2019-11-16 09:13 | NUR ---
SS NOTES/AA LIST URBAN PLANNING PROFESSOR received an order for AA list. URBAN PLANNING PROFESSOR provided pt with AA list around his area and informed pt that there are no in-person meetings right now but provided patient with the AA website to get access for AA Zoom meetings. Informed Emi ZAIDI. No further SS needs identified.
--- NOTE | 2019-11-16 10:20 | NUR ---
Discharge Patient discharged from hospital. DC instructions provided with overview of prescription medications and additional resources, AA list. A/Ox4, speaking in full, complete sentences with ease, denies pain at this time. Patient changed into his personal clothes, PIV removed. Patient being taken home by friend. Patient ambulatory with steady gait out of hospital with all of his belongings in his possession.
[2019-11-16 11:04] VITALS: BP_SYST 125
== END 2019-11-16 10:53 | disposition home or self-care (01) | DRG 241 ==
LOC: SED 15:47 → STU 17:57 → SMU 11-12 23:45
PROVIDERS: ADMIT General Practice; ATTEND General Practice
DX: K29.20 Alcoholic gastritis without bleeding (principal); F10.231 Alcohol dependence with withdrawal delirium; N39.0 Urinary tract infection, site not specified; E87.6 Hypokalemia; F31.9 Bipolar disorder, unspecified; F41.9 Anxiety disorder, unspecified; Z20.828 Contact with and (suspected) exposure to other viral communicable diseases; R65.10 Systemic inflammatory response syndrome (SIRS) of non-infectious origin without acute organ dysfunction
CPT/HCPCS: 36415; 74018; 80048; 80053; 80307; 81000-TC; 83036; 83690-TC; 83735-TC; 85025; 94640; 94760; 96365; 96366; 96375; 99291; G0378; G0482; J0696; J1200; J2060; J2405; J3411; J3475; J3480; J3490; J7030; J7060; J7512; J7613

== ENCOUNTER 2019-12-14 07:38 | Emergency (ER) | payer SELFPAY ==
[~2019-12-14] VITALS: Ht 157.5 cm; Wt 69.4 kg
[~2019-12-14 07:38] MED LIST: FOLI-43 PO; NEU300 PO; OLAN5TAB3 PO; PRO40 PO
[2019-12-14 07:59] VITALS: BP_SYST 151
[2019-12-14] MEDS ORDERED: ONDANSETRON 4 MG ODT TAB PO ONE (08:15)
[2019-12-14] MEDS ORDERED: KETOROLAC TROMETHAMINE 60 MG/2 ML VIAL IM ONE (08:15)
[2019-12-14] MEDS ORDERED: LORazepam 2 MG/ML VIAL IM ONE (08:15)
[2019-12-14 08:40] VITALS: BP_SYST 149
== END 2019-12-14 08:40 | disposition home or self-care (01) ==
LOC: SED 07:38
DX: F10.239 Alcohol dependence with withdrawal, unspecified (principal); R11.2 Nausea with vomiting, unspecified; R19.7 Diarrhea, unspecified; I10 Essential (primary) hypertension; J44.9 Chronic obstructive pulmonary disease, unspecified; Z79.899 Other long term (current) drug therapy
CPT/HCPCS: 96372; 99284; J1885; J2060; Q0162

== ENCOUNTER 2019-12-15 22:25 | Emergency (ER) | payer SELFPAY ==
[~2019-12-15] VITALS: Ht 149.9 cm; Wt 68.0 kg
[2019-12-15 22:34] VITALS: BP_SYST 119
[2019-12-15] MEDS ORDERED: ONDANSETRON HCL 4 MG/2 ML VIAL IVP ONE (23:15)
[2019-12-15] MEDS ORDERED: FOLIC ACID 1 MG, THIAMINE HCL 100 MG, MAGNESIUM SULFATE 1 GM, MVI 10 ML in NACL 0.9% 1,... IV ONE (23:15)
[2019-12-15] MEDS ORDERED: chlordiazePOXIDE HCL 25 MG CAPSULE PO ONE (23:15)
[2019-12-15] MEDS ORDERED: LORazepam 2 MG/ML VIAL IVP ONE (23:15)
[2019-12-15] MEDS ORDERED: PANTOPRAZOLE SODIUM 40 MG/VIAL (PROTONIX) IVP ONE (23:15)
[2019-12-15] MEDS ORDERED: THIAMINE HCL 100 MG/ML VIAL ONE (23:29)
[2019-12-15] MEDS ORDERED: MVI 10 ML VIAL IV ONE (23:29)
[2019-12-15] MEDS ORDERED: MAGNESIUM SULFATE 1 GM/2 ML VIAL ONE (23:29)
[2019-12-15] MEDS ORDERED: FOLIC ACID 5 MG/ML VIAL IV ONE (23:29)
[2019-12-16 00:05] LABS: BASOPHILS # (AUTO) 0.3 K/uL (0.0-0.2); BASOPHILS % (AUTO) 3.3 % (0.0-2.0); EOSINOPHILS # (AUTO) 0.1 K/uL (0.0-0.4); EOSINOPHILS % (AUTO) 1.3 % (0.0-4.0); HEMATOCRIT 42.7 % (36-54); HEMOGLOBIN 14.5 g/dL (14.0-18.0); LYMPHOCYTES % (AUTO) 35.7 % (20.5-51.5); MEAN CORPUSCULAR HEMOGLOBIN 32 pg (27-31); MEAN CORPUSCULAR HGB CONC 34 % (32-36); MEAN CORPUSCULAR VOLUME 94 fL (79.0-98.0); MONOCYTES # (AUTO) 0.9 K/uL (0.0-1.0); MONOCYTES % (AUTO) 10.7 % (1.7-9.3); NEUTROPHILS # (AUTO) 4.2 K/uL (1.8-7.7); PLATELET COUNT (AUTO) 293 K/uL (130-430); RED BLOOD CELL COUNT(AUTO) 4.55 MIL/uL (4.2-6.2); RED CELL DISTRIBUTION WIDTH 15.6 % (9.0-15.0); WHITE BLOOD COUNT (AUTO) 8.5 K/uL (4.8-10.8)
[2019-12-16 00:10] LABS: CALCIUM 7.9 mg/dL (8.4-11.0); CREATININE 0.81 mg/dL (0.55-1.30); POTASSIUM 3.5 mmol/L (3.5-5.1)
[2019-12-16 00:13] LABS: INR 1.2 (0.80-1.20); PROTHROMBIN TIME 12.3 SECS (9.5-12.5)
[2019-12-16 00:25] LABS: ALBUMIN 3.8 g/dL (3.4-4.8); TOTAL BILIRUBIN 1.3 mg/dL (0.0-1.0)
[2019-12-16] MEDS ORDERED: POTASSIUM CHLORIDE 10 MEQ in NACL 0.9% 1,000 ML IV ONE (02:15)
[2019-12-16 03:07] LABS: BILIRUBIN,URINE NEGATIVE (NEGATIVE); BLOOD, URINE NEGATIVE (NEGATIVE); CLARITY/URINE CLEAR (CLEAR); COLOR,URINE YELLOW (YELLOW); GLUCOSE,URINE NEGATIVE (NEGATIVE); KETONES,URINE NEGATIVE (NEGATIVE); LEUKOCYTE ESTERASE ,URINE NEGATIVE (NEGATIVE); NITRITE, URINE NEGATIVE (NEGATIVE); PROTEIN URINE NEGATIVE (NEGATIVE); UROBILINOGEN,URINE 0.2 (0.2-1.0)
[2019-12-16 03:24] LABS: BARBITURATE, URINE NEGATIVE (NEG <=200); BENZODIAZEPINE, URINE POSITIVE (NEG <=150); CANNABINOID, URINE NEGATIVE (NEG <=50); COCAINE, URINE NEGATIVE (NEG <=150); METHAMPHETAMINES SCREEN,URINE NEGATIVE (NEG <=500); OPIATE, URINE NEGATIVE (NEG <=100); PHENCYCLIDINE SCREEN,URINE NEGATIVE (NEG <=25); UR TRICYCLIC ANTIDEPRESSANTS NEGATIVE (NEG <=300); URINE AMPHETAMINE NEGATIVE (NEG <=500); URINE METHADONE NEGATIVE (NEG <=200); URINE OXYCODONE SCREEN NEGATIVE (NEG <=100); URINE PROPOXYPHENE SCREEN NEGATIVE (NEG <=300)
[2019-12-16] MEDS: LORazepam 2 MG/ML VIAL IVP PRN ×3 (04:24→08:57)
[2019-12-16] MEDS ORDERED: BANANA BAG 1 EA, MVI 10 ML, THIAMINE HCL 100 MG, FOLIC ACID 1 MG, MAGNESIUM SULFATE 1 G... IV SCH ×5 (08:30)
[2019-12-16] MEDS: chlordiazePOXIDE HCL 25 MG CAPSULE PO SCH ×2 (08:41→08:42)
[2019-12-16] MEDS: PANTOPRAZOLE SODIUM 40 MG TAB PO SCH ×2 (08:42→08:55)
[2019-12-16 08:47] LABS: BILIRUBIN,DIRECT 0.8 mg/dL (0.0-0.3); CALCIUM 7.4 mg/dL (8.4-11.0); CREATININE 0.77 mg/dL (0.55-1.30); POTASSIUM 3.5 mmol/L (3.5-5.1); TOTAL BILIRUBIN 1.6 mg/dL (0.0-1.0)
[2019-12-16 08:48] LABS: ALBUMIN 3.5 g/dL (3.4-4.8)
[2019-12-16 09:02] LABS: THYROID STIMULATING HORMONE 2.06 uIu/mL (0.34-4.82)
[2019-12-16 10:26] VITALS: BP_SYST 144
[2019-12-16] MEDS ORDERED: FOLIC ACID 1 MG, MVI 10 ML in NACL 0.9% 1,000 ML IV SCH (11:00)
[2019-12-16] MEDS ORDERED: THIAMINE HCL 100 MG, MAGNESIUM SULFATE 1 GM in NS 100 ML IV SCH (11:00)
[2019-12-17 07:06] LABS: HEPATITIS A AB, IgM Negative (Negative); HEPATITIS B CORE AB, IgM Negative (Negative); HEPATITIS B SURFACE AG Negative (Negative)
== END 2019-12-16 10:27 | disposition left against medical advice (07) ==
LOC: SED 22:25 → STU 12-16 02:04 → UNDOADMIN 12-16 02:04 → STU 12-16 06:45 → UNDODISIN 12-16 10:51
DX: F10.239 Alcohol dependence with withdrawal, unspecified (principal); K29.20 Alcoholic gastritis without bleeding; R45.851 Suicidal ideations; Z20.828 Contact with and (suspected) exposure to other viral communicable diseases; Y90.8 Blood alcohol level of 240 mg/100 ml or more
CPT/HCPCS: 36415; 76700-TC; 80048; 80053; 80074; 80076; 80307; 81003; 82150-TC; 82248-TC; 83690-TC; 83735-TC; 84443-TC; 84484; 85025; 85610-TC; 85730-TC; 93005; 96361; 96365; 96366; 96375; 99285; C9113; G0378; G0482; J2060; J2405; J3411; J3475; J3480; J3490; J7030

== ENCOUNTER 2019-12-17 10:15 | Emergency (ER) | payer SELFPAY ==
[~2019-12-17] VITALS: Ht 149.9 cm; Wt 77.1 kg
[2019-12-17 10:15] VITALS: BP_SYST 132
--- NOTE | 2019-12-17 10:15 | NUR ---
BROUGHT BACK TO BED #5 VIA WHEELCHAIR, PLACED IN BED AND TRIAGED. REPORT GIVEN TO OUSMANE
[2019-12-17 10:41] LABS: BASOPHILS # (AUTO) 0.1 K/uL (0.0-0.2); BASOPHILS % (AUTO) 1.6 % (0.0-2.0); EOSINOPHILS % (AUTO) 0.5 % (0.0-4.0); HEMATOCRIT 38.4 % (36-54); HEMOGLOBIN 13.5 g/dL (14.0-18.0); LYMPHOCYTES # (AUTO) 1.8 K/uL (1.0-5.5); LYMPHOCYTES % (AUTO) 25.3 % (20.5-51.5); MEAN CORPUSCULAR HEMOGLOBIN 33 pg (27-31); MEAN CORPUSCULAR HGB CONC 35 % (32-36); MEAN CORPUSCULAR VOLUME 93 fL (79.0-98.0); MONOCYTES # (AUTO) 0.6 K/uL (0.0-1.0); MONOCYTES % (AUTO) 7.9 % (1.7-9.3); NEUTROPHILS # (AUTO) 4.6 K/uL (1.8-7.7); NEUTROPHILS % (AUTO) 64.7 % (40.0-70.0); PLATELET COUNT (AUTO) 242 K/uL (130-430); RED BLOOD CELL COUNT(AUTO) 4.13 MIL/uL (4.2-6.2); RED CELL DISTRIBUTION WIDTH 15.6 % (9.0-15.0)
--- NOTE | 2019-12-17 10:45 | NUR ---
DR PRAKASH AT BEDSIDE FOR EVALUATION
--- NOTE | 2019-12-17 10:50 | NUR ---
pt in [place] rest with side rails up. Pt awake and able to make needs known.
[2019-12-17 10:54] LABS: ANION GAP 15 (5-15); CALCIUM 8.1 mg/dL (8.4-11.0); CHLORIDE 99 mmol/L (98-107); CREATININE 0.87 mg/dL (0.55-1.30); GLUCOSE 142 mg/dL (70-99); POTASSIUM 3.4 mmol/L (3.5-5.1); SODIUM SERUM 133 mmol/L (136-145); UREA NITROGEN, BLOOD 15 mg/dL (8-21)
[2019-12-17 10:57] LABS: GFR AFRICAN AMERICAN 122 mL/min (>90)
[2019-12-17 11:04] LABS: ALBUMIN 3.3 g/dL (3.4-4.8); ALCOHOL, BLOOD 241 mg/dL (<10); TOTAL BILIRUBIN 1.5 mg/dL (0.0-1.0)
[2019-12-17 11:08] LABS: ACETAMINOPHEN < 1 ug/mL (1-30)
[2019-12-17 11:17] LABS: ALANINE AMINOTRANSFERASE 334 U/L (12-78); ASPARTATE AMINOTRANSFERASE 802 U/L (10-37)
--- NOTE | 2019-12-17 11:27 | NUR ---
nose laceration cleaned with betadine and saline. Provider approximated the laceration with Dermabond. Bleeding controlled.
--- NOTE | 2019-12-17 12:00 | NUR ---
pt in [facility], side rails up. No distress noted.
--- NOTE | 2019-12-17 13:30 | NUR ---
Pt is not able to ambulate without assistance at this time. Attempting to call family to come and pick him up.
--- NOTE | 2019-12-17 14:30 | NUR ---
SPOKE WITH FATHER OF PT AND STATES HE WILL COME GET PT. FATHER IS COMING FROM [place]
[2019-12-17 16:23] VITALS: BP_SYST 132
--- NOTE | 2019-12-17 16:24 | NUR ---
Patient given written and verbal discharge instructions and verbalizes understanding. ER MD discussed with patient the results and treatment provided. Patient in stable condition. ID arm band removed.Patient educated on pain management and to follow up with PMD. Pain Scale 0/10. Opportunity for questions provided and answered. Medication side effect fact sheet provided.
== END 2019-12-17 16:24 | disposition home or self-care (01) ==
LOC: SED 10:15
DX: S01.21XA Laceration without foreign body of nose, initial encounter (principal); F10.129 Alcohol abuse with intoxication, unspecified; I10 Essential (primary) hypertension; J44.9 Chronic obstructive pulmonary disease, unspecified; F17.200 Nicotine dependence, unspecified, uncomplicated; Z79.899 Other long term (current) drug therapy; W18.39XA Other fall on same level, initial encounter; Y93.89 Activity, other specified; Y92.89 Other specified places as the place of occurrence of the external cause; Y99.8 Other external cause status
CPT/HCPCS: 12011; 36415; 70450; 70486; 72125; 80053; 84484; 85025; 93005; 99285; G0480; G0481; G0482

== ENCOUNTER 2023-05-13 09:52 | Emergency (ER) | payer MEDICAID ==
[~2023-05-13] VITALS: Ht 149.9 cm; Wt 59.0 kg
[2023-05-13 09:58] VITALS: BP_SYST 128; PULSE 78; RESP 20; TEMP 98.9; O2SAT 97
[2023-05-13] MEDS: IPRATROPIUM/ALBUTEROL SULFATE 3 ML AMPUL.NEB (DUONEB) INH ONE (10:01)
[2023-05-13] MEDS: predniSONE 20 MG TABLET PO ONE (10:10)
[2023-05-13 10:22] LABS: BASOPHILS # (AUTO) 0.1 K/uL (0.0-0.2); BASOPHILS % (AUTO) 1.1 % (0.0-2.0); EOSINOPHILS # (AUTO) 0.5 K/uL (0.0-0.4); EOSINOPHILS % (AUTO) 7.2 % (0.0-4.0); HEMATOCRIT 41.5 % (36-54); LYMPHOCYTES # (AUTO) 1.7 K/uL (1.0-5.5); LYMPHOCYTES % (AUTO) 26.9 % (20.5-51.5); MEAN CORPUSCULAR HEMOGLOBIN 29 pg (27-31); MEAN CORPUSCULAR HGB CONC 34 % (32-36); MEAN CORPUSCULAR VOLUME 85 fL (79.0-98.0); MONOCYTES # (AUTO) 0.6 K/uL (0.0-1.0); MONOCYTES % (AUTO) 8.6 % (1.7-9.3); NEUTROPHILS # (AUTO) 3.6 K/uL (1.8-7.7); NEUTROPHILS % (AUTO) 56.2 % (40.0-70.0); PLATELET COUNT (AUTO) 250 K/uL (130-430); RED BLOOD CELL COUNT(AUTO) 4.88 MIL/uL (4.2-6.2); RED CELL DISTRIBUTION WIDTH 14.7 % (9.0-15.0); WHITE BLOOD COUNT (AUTO) 6.4 K/uL (4.8-10.8)
[2023-05-13 10:35] LABS: CALCIUM 9.2 mg/dL (8.4-11.0); CREATININE 0.71 mg/dL (0.55-1.30); POTASSIUM 4.4 mmol/L (3.5-5.1)
[2023-05-13] MEDS ORDERED: AZIT500T3 PO (11:14)
[2023-05-13] MEDS ORDERED: METH-776 PO (11:14)
[2023-05-13] MEDS ORDERED: ALBMDI INH (11:14)
[2023-05-13 11:15] LABS: INFLUENZA TYPE A Negative (NEGATIVE); INFLUENZA TYPE B NEGATIVE (NEGATIVE)
[2023-05-13 11:22] VITALS: BP_SYST 128; PULSE 78; RESP 20; TEMP 98.9; O2SAT 99
== END 2023-05-13 11:22 | disposition home or self-care (01) ==
LOC: SED 09:52
DX: J45.909 Unspecified asthma, uncomplicated (principal); R06.02 Shortness of breath; J44.9 Chronic obstructive pulmonary disease, unspecified; I10 Essential (primary) hypertension; Z79.899 Other long term (current) drug therapy; Z20.822 Contact with and (suspected) exposure to COVID-19
CPT/HCPCS: 99284; 71045; 87426; 80048; 85025; 36415; 94640; 94760; 87804 ×2; J7512